=== PATIENT | female | born 1970 | race Caucasian/White ===

== ENCOUNTER 2021-02-14 11:23 | Inpatient (IN) | payer OTHER ==
[2021-02-14 12:34] VITALS: BMI 26.9
[2021-02-14] MEDS ORDERED: BISMUTH SUBSALICYLATE 524 MG/30 ML UD PO PRN (12:59)
[2021-02-14] MEDS ORDERED: MAG HYDROX/AL HYDROX/SIMETH 30 ML UNIT-DOSE CUP PO PRN (12:59)
[2021-02-14] MEDS ORDERED: chlordiazePOXIDE HCL 25 MG CAPSULE PO PRN (12:59)
[2021-02-14] MEDS ORDERED: MAGNESIUM CITRATE 300 ML BOTTLE PO PRN (12:59)
[2021-02-14] MEDS ORDERED: ONDANSETRON *ODT* 4 MG TABLET SL PRN (12:59)
[2021-02-14] MEDS ORDERED: METHOCARBAMOL 500 MG TABLET PO PRN (12:59)
[2021-02-14] MEDS ORDERED: ACETAMINOPHEN 325 MG TABLET (FP) PO PRN ×2 (12:59)
[2021-02-14] MEDS ORDERED: MENTHOL/PHENOL 1 EACH UD MM PRN (12:59)
[2021-02-14] MEDS ORDERED: MAGNESIUM HYDROX 2400MG/30ML ORAL SUSPENSION 30 ML CUP PO PRN (12:59)
[2021-02-14] MEDS ORDERED: IBUPROFEN 400 MG TABLET (FP) PO PRN (12:59)
[2021-02-14] MEDS ORDERED: NICOTINE POLACRILEX 2 MG GUM BUC PRN (12:59)
[2021-02-14] MEDS ORDERED: HYDROXYCHLOROQUINE SO4 200 MG TABLET (FP) PO SCH (13:00)
[2021-02-14] MEDS: FERROUS GLUCONATE 324 MG TAB (FP) PO SCH (14:17)
[2021-02-14] MEDS: hydrOXYzine PAMOATE 25 MG CAPSULE (FP) PO SCH ×3 (14:17→22:18)
[2021-02-14] MEDS: NICOTINE 21 MG/24 HOURS TOPICAL PATCH TD SCH (14:18)
[2021-02-14] MEDS: PRENATAL VITAMINS W/ FOLIC ACID TABLET (FP) PO SCH (14:18)
[2021-02-14] MEDS: ALBUTEROL SO4 HFA INHALER IH SCH ×3 (14:25→22:18)
[2021-02-14 14:44] LABS: POTASSIUM 4.3 mmol/L (3.5-5.1)
[2021-02-14 14:51] LABS: HEMOGLOBIN 11.1 GM/dL (10.7-15.3); MCH 25.6 pg (25.7-33.7); MCHC 32.7 g/dl (32.0-36.0); MEAN CELL VOLUME 78.4 fl (80-96); MEAN PLT VOLUME 8.3 fl (7.5-11.1); PLATELET COUNT 323 K/MM3 (134-434); RBC 4.34 M/mm3 (3.60-5.2); RDW 18.2 % (11.6-15.6); WHITE BLOOD COUNT 4.4 K/mm3 (4.0-10.0)
[2021-02-14 14:55] LABS: BLOOD UREA NITROGEN 4.4 mg/dL (7-18); CALCIUM 9.4 mg/dL (8.5-10.1)
[2021-02-14 14:56] LABS: ALBUMIN 3.1 g/dl (3.4-5.0)
[2021-02-14 15:00] LABS: BILIRUBIN,TOTAL 0.4 mg/dL (0.2-1)
[2021-02-14 15:01] LABS: TOT PROT 7.5 g/dl (6.4-8.2)
[2021-02-14 15:02] LABS: CREATININE 0.6 mg/dL (0.55-1.3)
[2021-02-14] MEDS: chlordiazePOXIDE HCL 25 MG CAPSULE PO SCH ×2 (17:18→22:18)
[2021-02-14] MEDS: HYDROXYCHLOROQUINE SO4 200 MG TABLET (FP) PO SCH (17:19)
[2021-02-14] MEDS ORDERED: THIAMINE HCL 100 MG TABLET (FP) PO SCH (22:00)
[2021-02-14] MEDS ORDERED: MELATONIN 5 MG TABLETS PO SCH (22:00)
[2021-02-14] MEDS ORDERED: MIRTAZAPINE 15 MG TABLET (FP) PO SCH (22:00)
[2021-02-14] MEDS: TOPIRAMATE 100 MG TABLET PO SCH (22:17)
[2021-02-15] MEDS: hydrOXYzine PAMOATE 25 MG CAPSULE (FP) PO SCH ×4 (06:14→17:47)
[2021-02-15] MEDS: HYDROXYCHLOROQUINE SO4 200 MG TABLET (FP) PO SCH ×2 (06:14→17:47)
[2021-02-15] MEDS: chlordiazePOXIDE HCL 25 MG CAPSULE PO SCH ×2 (06:14→10:40)
[2021-02-15] MEDS ORDERED: LEVOTHYROXINE NA 25 MCG TABLET (FP) PO SCH (07:00)
[2021-02-15] MEDS: FERROUS GLUCONATE 324 MG TAB (FP) PO SCH (10:40)
[2021-02-15] MEDS: NICOTINE 21 MG/24 HOURS TOPICAL PATCH TD SCH (10:41)
[2021-02-15] MEDS: ALBUTEROL SO4 HFA INHALER IH SCH ×3 (10:41→17:47)
[2021-02-15] MEDS: PRENATAL VITAMINS W/ FOLIC ACID TABLET (FP) PO SCH (10:41)
[2021-02-15] MEDS: TOPIRAMATE 100 MG TABLET PO SCH (10:41)
[2021-02-15] MEDS ORDERED: LORazepam 1 MG TABLET PO PRN (14:48)
[2021-02-15] MEDS ORDERED: LORazepam 2 MG TABLET PO SCH (17:00)
[2021-02-15 17:40] VITALS: BP 131/78; PULSE 85; TEMP 98.6
[2021-02-16] MEDS ORDERED: chlordiazePOXIDE HCL 25 MG CAPSULE PO SCH (05:00)
[2021-02-17] MEDS ORDERED: chlordiazePOXIDE HCL 10 MG CAPSULE PO PRN
[2021-02-17] MEDS ORDERED: LORazepam 1 MG TABLET PO SCH (05:00)
[2021-02-17] MEDS ORDERED: chlordiazePOXIDE HCL 10 MG CAPSULE PO SCH (05:00)
[2021-02-18] MEDS ORDERED: LORazepam 0.5 MG TABLET PO PRN
[2021-02-18] MEDS ORDERED: LORazepam 0.5 MG TABLET PO SCH (05:00)
[2021-02-18] MEDS ORDERED: chlordiazePOXIDE HCL 10 MG CAPSULE PO SCH (05:00)
[2021-02-18] MEDS ORDERED: METHOTREXATE 2.5 MG TABLET PO SCH (10:00)
[2021-02-19] MEDS ORDERED: chlordiazePOXIDE HCL 10 MG CAPSULE PO ONE (05:00)
[2021-02-19] MEDS ORDERED: LORazepam 0.5 MG TABLET PO ONE (05:00)
== END 2021-02-15 20:20 | disposition left against medical advice (07) | DRG 770 ==
LOC: YASAS 11:23 → Y6N 12:37
PROVIDERS: ADMIT Allergy & Immunology; ATTEND Allergy & Immunology
PROC: HZ2ZZZZ Detoxification Services for Substance Abuse Treatment (ICD-10-PCS; principal; 2021-02-14)
DX: F10.230 Alcohol dependence with withdrawal, uncomplicated (principal); F12.20 Cannabis dependence, uncomplicated; F17.210 Nicotine dependence, cigarettes, uncomplicated; F10.282 Alcohol dependence with alcohol-induced sleep disorder; F10.280 Alcohol dependence with alcohol-induced anxiety disorder; F60.3 Borderline personality disorder; F43.10 Post-traumatic stress disorder, unspecified; D64.9 Anemia, unspecified; E03.9 Hypothyroidism, unspecified; J45.909 Unspecified asthma, uncomplicated; M32.9 Systemic lupus erythematosus, unspecified; R74.01 Elevation of levels of liver transaminase levels; Z62.810 Personal history of physical and sexual abuse in childhood; Z98.84 Bariatric surgery status; Z98.891 History of uterine scar from previous surgery; Z88.8 Allergy status to other drugs, medicaments and biological substances
CPT/HCPCS: 36415; 80053; 81025; 85027; 86780; 93005; 93010; C9803; U0003; U0005